=== PATIENT | female | born 1965 | race Caucasian/White ===

== ENCOUNTER 2023-01-04 09:02 | Emergency (ER) | payer OTHER, SELFPAY ==
--- NOTE | ~2023-01-04 | CT_ITS ---
EXAMINATION: CT HEAD WITHOUT CONTRAST CLINICAL INFORMATION: Vision changes in the left eye. COMPARISON: No relevant prior imaging. TECHNIQUE: Contiguous axial imaging was performed from the skull base to vertex without intravenous administration of contrast. This CT examination was performed using dose optimization techniques as appropriate, variously including the following: *Automated exposure control *Adjustment of mA and/or kV according to patient size (this includes techniques or standardized protocols for targeted exams where dose is matched to indication/reason for exam; i.e. extremities or head) *Use of iterative reconstruction technique DLP: 554 mGy-cm FINDINGS: There is no acute intracranial hemorrhage or abnormal extra-axial collection. No intracranial mass effect or midline shift. Lateral and third ventricles are normal. No hydrocephalus. [place]-white matter differentiation is preserved and there is no evidence of acute territorial infarct. The calvarium and skull base are intact. Mastoid air cells and middle ear cavities are well aerated. No active paranasal sinus disease. CT/CT head/brain wo IV con IMPRESSION: Normal CT scan of the head.
[2023-01-04 09:06] VITALS: BP 148/82; PULSE 86; RESP 18; TEMP 36.6; O2SAT 99; BMI 25.0
--- NOTE | 2023-01-04 09:11 | ED.HA ---
HPI - Headache General Chief Complaint: Headache Stated Complaint: Vision loss L eye/Headache Time Seen by Provider: 01/04/23 09:11 Source: patient Mode of arrival: ambulatory Limitations: no limitations History of Present Illness HPI Narrative: 57 year old female with pmhx significant for migraines, fibromyalgia, and HDL presents to the ED today with complaint of headache and intermittent partial blurred vision in left eye x2 days. Endorses sudden onset right-sided headache last night followed by blurred vision in her left eye which lasted around 30 minutes before completely resolving. Reports taking 1 Fioricet without relief of TEE. Then took Aleve which helped her sleep through the night. Admits to waking up this morning with worsening right-sided headache. Pain intensity now 10/10. States that she has never had a headache like this in her life. Endorses blurred vision to the nasal aspect of her left eye with floaters. Notes this aura is similar to past migraines. Took fioricet at 0700 and aleve at 0800 without improvement. Reports distant history of migraine with aura, admits to following with neurology 30 years ago for this. Does not follow with them currently. Takes Fioricet daily for fibromyalgia. Denies history of TIA/CVA or VTE. Denies scalp tenderness, jaw claudication, vision loss, speech changes, nausea/ vomiting, chest pain, palpitations, LE pain or swelling. Related Data Previous Rx's Medication Instructions Recorded diphenhydramine HCl 25 mg capsule 25 mg PO Q6-8H PRN motion sickness 01/04/23 (Benadryl) #14 caps ketorolac 10 mg tablet 10 mg PO Q8H 5 days #15 tabs 01/04/23 ondansetron 4 mg disintegrating 4 mg PO DAILY PRN nausea and 01/04/23 tablet vomiting 5 days #14 tabs Allergies Allergy/AdvReac Type Severity Reaction Status Date / Time adhesive tape AdvReac Rash Verified 01/04/23 09:05 celecoxib [From Celebrex] AdvReac Diarrhea Verified 01/04/23 09:05 Review of Systems Review of Systems: Constitutional: No fever, chills, fatigue, night sweats, weight changes ENT/Mouth: No ear pain, hearing loss, nasal congestion, sinus pain, rhinorrhea, sore throat Eyes: No eye pain, swelling, redness, +vision changes, No discharge Cardio: No chest pain, palpitations, BRICE, orthopnea, peripheral edema Pulm: No SOB, cough, sputum, wheezing, dyspnea, hemoptysis GI: No nausea, vomiting, hematemesis, abdominal pain, diarrhea, constipation, hematochezia, melena : No irregular bleeding, dysuria, frequency, urgency, hesitancy, hematuria, flank pain, urinary flow changes, urinary incontinence or retention MSK: No back pain, neck pain, joint pain, myalgias Skin: No lesions, rashes Neuro: No weakness, numbness, paresthesias, LOC, dizziness, +headache All other systems reviewed and are negative. [facility] Past Medical History Attestation statement: The following information was validated with the patient. Source: old records reviewed and nursing notes reviewed Social History Social History Advance Directives: No Advance Directives Information Provided: Yes Patient : No Physical Exam Vital Signs: Vital Signs: Last Vital Signs Temp 97.9 F 01/04/23 09:06 Pulse 86 01/04/23 09:06 Resp 18 01/04/23 09:06 BP 148/82 H 01/04/23 09:06 Pulse Ox 99 01/04/23 09:06 O2 Del Method Room Air 01/04/23 09:06 BMI result Body Mass Index 25.0 Vital signs stable Const: General: cooperative, healthy appearing, comfortable, no acute distress, alert and awake Orientation/consciousness: patient oriented x3 Limitations: no limitations HEENT: Head: Yes normal to inspection, Yes normocephalic, Yes atraumatic, No scalp tenderness and No Temporal artery tenderness present Ears: hearing grossly normal bilaterally General nose exam: Normal external nose present Face and sinus: Yes normal facial exam and Yes sinuses nontender Mouth: Normal oral and palatal mucosa present and moist mucous membranes Eyes: General: appearance normal, both eyes and all related structures Conjunctivae: conjunctivae normal Sclerae: sclerae normal Pupils: Equal, round and reactive pupils present EOM: EOMs intact bilaterally Direct Ophthalmoscopy: normal light reflex, no photophobia, no papilledema and fundi normal bilaterally Neck: Neck: Yes normal visual inspection, Yes full ROM, Yes no lymphadenopathy and Yes no meningeal signs Resp: Effort & Inspection: normal respiratory effort Auscultation: clear to auscultation bilaterally Cardio: Rate: regular rate Rhythm: regular rhythm Peripheral pulses: radial pulses present, posterior tibial pulses present and dorsalis pedis present GI: Inspection: Yes normal to inspection Palpation (GI): Soft to palpation, nontender and no guarding Skin: General skin exam: no rashes or lesions noted Neuro: Other: + normal visual huizar by confrontation General: patient oriented x3, gait normal, moves all extremities, no meningeal signs and no focal motor deficits Cranial nerves: Yes CN's II-XII intact bilaterally and Yes Equal, round and reactive pupils present Gait exam (Neuro): Normal gait present Coordination: [id number] test normal, [id number] test normal and Normal rapid alternating movements of the distal upper extremity present (Neuro) Pupils: Normal pupillary reactivity/response: bilateral Extrem: General: Yes normal to inspection and Yes full ROM NIH Stroke Scale Internal: Initial- Upon Arrival Time: 09:15 Level of Consciousness: Alert Level of Consciousness Questions: Answers both questions correctly Level of Consciousness Commands: Performs both tasks correctly Best Gaze: Normal Visual: No visual loss Facial Palsy: Normal Motor Arm (Right): No drift Motor Arm (Left): No drift Motor Leg (Right): No drift Motor Leg (Left): No drift Limb Ataxia: Absent Sensory: Normal Best Language: No aphasia Dysarthia: Normal Extinction and Inattention: No abnormality Score: 0 Course Course Course Narrative: 1055-- CBC without leukocytosis or anemia. Chemistry without acute electrolyte abnormalities requiring intervention. ESR/CRP within normal limits > unlikely temporal arteritis. CT head/brain without intracranial hemorrhage, mass effect or shift > no concern for subarachnoid hemorrhage, ICH. CVA/ TIA unlikely as exam is nonfocal. Patient receiving IVF and medications. Plan for re-eval. 1124-- On re-evaluation, patient reports symptom improvement with Benadryl, Reglan, Toradol. Pain intensity is now 2/10. I informed her of her lab and imaging results. As workup is unremarkable and examination is nonfocal, patient's symptoms are consistent with migraine with aura. Will provide patient with referral to Neurology for follow-up. Discussed strict return precautions. All questions answered at this time. Patient is agreeable disposition and stable for discharge. Medications Administered Discontinued Medications Generic Name Dose Route Start Last Admin Trade Name Freq PRN Reason Stop Dose Admin Diphenhydramine HCl 50 mg 01/04/23 09:59 01/04/23 10:09 Diphenhydramine Hcl 50 Mg/Ml Vial IVPUSH 01/04/23 10:00 50 mg ONCE ONE Administration Sodium Chloride 1,000 mls @ 999 mls/hr 01/04/23 09:45 01/04/23 11:37 Ns IV 01/04/23 10:45 Infused .Q1H1M TIMUR Infusion Ketorolac Tromethamine 15 mg 01/04/23 09:59 01/04/23 10:21 Ketorolac Tromethamine 15 Mg/Ml Vial IVPUSH 01/04/23 10:00 15 mg ONCE ONE Administration Metoclopramide HCl 10 mg 01/04/23 09:59 01/04/23 10:09 Metoclopramide Hcl 10 Mg/2 Ml Vial IVPUSH 01/04/23 10:00 10 mg ONCE ONE Administration Medical Decision Making Medical Decision Making [facility] Narrative: 57 year old female with pmhx significant for migraines, fibromyalgia, and HDL presents to the ED today with complaint of headache and intermittent partial blurred vision in left eye x2 days. VSS. Nontoxic appearing and in NAD. Exam nonfocal. PERRLA. No conjunctival injection. Fundoscopic exam normal. Normal visual huizar by confrontation. No palpable temporal artery or scalp tenderness. NIH stroke scale 0. Clinical concern for migraine with aura, tension TEE, clustuer TEE, temporal arteritis. Unlikely ICH, CVA/ TIA, subarachnoid hemorrhage, dissection. Unlikely retinal detachment, retinal vein/ artery occlusion, glaucoma, FB, corneal abrasion. Plan at this time is for basic labs, CT head/brain, pain control, and re-eval. Differential Diagnosis Differential Diagnoses: The differential diagnosis associated with the presentation includes As above. Admission/Observation Not indicated. Lab Data [facility] Lab Attestation statement: I reviewed the patient's lab results. As above. 01/04/23 09:57 01/04/23 09:57 Labs: Lab Results 01/04/23 Range/Units 09:57 WBC 4.0 L (4.8-10.8) X10*3/uL RBC 4.20 (4.20-5.50) X10*6/uL Hgb 12.2 (12.0-16.0) g/dl Hct 36.3 L (37.0-47.0) % MCV 86.4 (80.0-98.0) fL MCH 29.0 (27.0-33.0) pg MCHC 33.6 (31.0-35.0) g/dl RDW 12.6 (11.0-16.0) % Plt Count 292 (160-400) X10*3/uL MPV 10.1 (9.4-12.3) fL Immature Gran % (Auto) 0.3 (0.0-0.4) % Neut % (Auto) 49.6 (45-73) % Lymph % (Auto) 41.2 H (20-40) % Brooks % (Auto) 5.3 (2-11) % Eos % (Auto) 2.8 (0-4) % Baso % (Auto) 0.8 (0-2) % Lymph # (Auto) 1.6 (1.2-4.9) X10*3/uL Brooks # (Auto) 0.2 (0.1-1.2) X10*3/uL Eos # (Auto) 0.1 (0.0-0.4) X10*3/uL Baso # (Auto) 0.0 (0.0-0.2) X10*3/uL Abs Immat Gran (auto) 0.01 (0.00-0.03) X10*3/uL Absolute Neuts (auto) 2.0 (2.0-8.3) x10*3/uL Absolute Nucleated RBC 0.000 (0.0-0.012) X10*3/uL Nucleated RBC % (auto) 0.0 (0.0-0.2) /100WBC ESR 13 (0-20) MM/HR PT 12.1 (11.1-13.3) SEC INR 1.0 (0.9-1.1) Sodium 140 (135-145) mmol/L Potassium 4.6 (3.3-5.1) mmol/L Chloride 107 (96-108) mmol/L Carbon Dioxide 26 (22-29) mmol/L Anion Gap 12 (12-20) BUN 14 (9-16) mg/dL Creatinine 0.76 (0.5-1.4) mg/dL Estim Creat Clear Calc 65.1 Estimated GFR > 60 Random Glucose 114 (60-115) mg/dL Calcium 9.8 (8.4-10.2) mg/dL Magnesium 2.0 (1.6-2.6) mg/dL Total Bilirubin 0.3 (0.0-1.0) mg/dL AST 37 H (5-31) U/L ALT 31 (0-31) U/L Alkaline Phosphatase 69 (39-117) U/L C-Reactive Protein < 0.10 (< or = 0.50) mg/dL Total Protein 7.4 (6.5-8.0) g/dL Albumin 4.1 (3.5-5.0) g/dL Lipase 44 (8-78) U/L Independent Interpretation I performed an independent interpretation of an: CT Scan Interpretation: CT head/brain without acute bleed, agree with radiologist's interpretation. Radiology Impression Discussion of test interpretation with radiology: I have reviewed the radiologist's reading. Radiologist Impression: CT head/brain wo IV con IMPRESSION: Normal CT scan of the head. External Record Review External record reviewed: Inpatient record Prescription Management I considered prescription management with: Pain Medication and Other (antiemetic) Chronic Conditions Patient?s care impacted by: Other (migraine) Critical Care Time Critical Care Time Critical Care Time: No Discharge Plan Discharge Clinical Impression: Migraine with aura Patient Disposition: Home, Self-Care Instructions: Migraine Headache (ED) Additional Instructions: Your labs today were reassuring. Your inflammatory markers were within normal limits. The CT of your head did not show acute bleed or mass. Your symptoms improved with medication today. Your symptoms are consistent with a migraine with aura. Benadryl is an antihistamine that has been sent to your pharmacy. Do not drive after taking this as it can make you sleepy. Toradol is an anti-inflammatory / pain medication. Take with food. Do not take this with Ibuprofen. Zofran is an anti-emetic. You may take this in conjunction with Benadryl and toradol for headache. You may also take OTC magnesium supplements to prevent headaches. Follow up with your primary care provider as needed You have been provided with a neurology referral. Call them to schedule an appointment. They will not call you. Return to the emergency department if her symptoms persist or worsen. The case of an emergency call 911. Prescriptions: New ketorolac 10 mg tablet 10 mg PO Q8H 5 Days Qty: 15 0RF diphenhydramine HCl [Benadryl] 25 mg capsule 25 mg PO Q6-8H PRN (Reason: motion sickness) Qty: 14 0RF ondansetron 4 mg tablet,disintegrating 4 mg PO DAILY PRN (Reason: nausea and vomiting) 5 Days Qty: 14 0RF [place] [facility] [place] Group[place] Colette Lee [Emergency Nurse] - Stand Alone Forms: Work/School Release Interventions: ED Discharge Assessment Last Done: 01/04/23 12:29 Discharge Date/Time: 01/04/23 12:30
[2023-01-04] MEDS: 0.9 % Sodium Chloride 1,000 ML 999 ML IV (09:59)
[2023-01-04 10:03] LABS: MANUAL DIFF FLAG NO
[2023-01-04 10:04] LABS: Basophils Percent Auto 0.8 % (0-2); Eosinophils Absolute Auto 0.1 X10*3/uL (0.0-0.4); Eosinophils Percent Auto 2.8 % (0-4); Hematocrit 36.3 % (37.0-47.0); Hemoglobin 12.2 g/dl (12.0-16.0); Imm Gran Abs Auto 0.01 X10*3/uL (0.00-0.03); Imm Gran Pct Auto 0.3 % (0.0-0.4); Lymphocytes Absolute Auto 1.6 X10*3/uL (1.2-4.9); Lymphocytes Percent Auto 41.2 % (20-40); Mean Corpuscular HGB Conc 33.6 g/dl (31.0-35.0); Mean Corpuscular Volume 86.4 fL (80.0-98.0); Mean Platelet Volume 10.1 fL (9.4-12.3); Monocytes Absolute Auto 0.2 X10*3/uL (0.1-1.2); Monocytes Percent Auto 5.3 % (2-11); Neutrophils Percent Auto 49.6 % (45-73); Platelet Count 292 X10*3/uL (160-400); Red Cell Distribution Width 12.6 % (11.0-16.0)
[2023-01-04] MEDS: diphenhydrAMINE HCL 50 MG/ML VIAL IVPUSH (10:09)
[2023-01-04] MEDS: Metoclopramide HCl 10 MG/2 ML VIAL IVPUSH (10:09)
[2023-01-04 10:13] LABS: Prothrombin Time 12.1 SEC (11.1-13.3)
[2023-01-04] MEDS: Ketorolac Tromethamine 15 MG/ML VIAL IVPUSH (10:21)
[2023-01-04 10:23] LABS: Alanine Aminotransferase 31 U/L (0-31); Albumin Level 4.1 g/dL (3.5-5.0); Alkaline Phosphatase 69 U/L (39-117); Anion Gap 12 (12-20); Aspartate Amino Transferase 37 U/L (5-31); Bilirubin Total 0.3 mg/dL (0.0-1.0); Blood Urea Nitrogen 14 mg/dL (9-16); C Reactive Protein < 0.10 mg/dL (< or = 0.50); Calcium 9.8 mg/dL (8.4-10.2); Carbon Dioxide 26 mmol/L (22-29); Chloride 107 mmol/L (96-108); Creatinine Clr Calc Pharmacy 65.1; Estimated Glomerular Filt Rate > 60; Glucose Random 114 mg/dL (60-115); Lipase 44 U/L (8-78); Potassium 4.6 mmol/L (3.3-5.1); Sodium 140 mmol/L (135-145); Total Protein 7.4 g/dL (6.5-8.0)
[2023-01-04 10:46] LABS: Erythrocyte Sedimentation Rate 13 MM/HR (0-20)
--- NOTE | 2023-01-04 10:50 | PC.NURSE ---
IV NOTED TO BE INFILTRATED.
== END 2023-01-04 12:30 | disposition home or self-care (01) ==
PROVIDERS: Physician Assistant Medical; Emergency Provider Emergency Medicine; PCP Family Medicine
DX: G43.109 Migraine with aura, not intractable, without status migrainosus (principal); M79.7 Fibromyalgia; E78.5 Hyperlipidemia, unspecified; Z79.899 Other long term (current) drug therapy
CPT/HCPCS: 36415; 70450; 80053; 83690; 83735; 85025; 85610; 85652; 86140; 96361; 96374; 96375; 99284; J1200; J1885; J2765